=== PATIENT | female | born 1955 | race Caucasian/White ===

== ENCOUNTER → 2020-12-24 | Outpatient (CLI) | payer OTHER ==
[~2020-12-24] MED LIST: ALPRAZOLAM 0.0.25 M1 PO; APAP650 PO; ASA81BEC PO; BIOTIN5000 MCG PO; FISH OIL 1,0001 EAC9 PO; HYDROCHLOROTH12.5 M1 PO; LIPITOR 40 MG T40 M1 PO; LISINOPRIL5 MG PO; LORATIDINE 10 M10 M1 PO; METFORMIN HCL500 M1 PO; METOPROLOL TART25 MG PO; NORFLEX100 MG PO; OMEPRAZOLE40 MG PO; VENTOLIN HFA INH8 GM INH; VITAMIN B-121000 MCG PO; VITAMIN B-6100 MG PO; VITAMIN B122500 MCG PO; VITAMIN D-40010 MCG PO; VITAMIN D325 MC1 PO; VITAMIN E400 UNI6 PO
[2020-12-24 14:07] LABS: URINE BILIRUBIN NEGATIVE (Negative); URINE BLOOD TRACE (Negative); URINE CLARITY CLEAR; URINE COLOR YELLOW; URINE GLUCOSE-RANDOM* NEGATIVE (Negative); URINE KETONES NEGATIVE (Negative); URINE LEUKOCYTES-REFLEX TRACE (Negative); URINE NITRITE-REFLEX NEGATIVE (Negative); URINE PROTEIN (DIPSTICK) NEGATIVE (Negative); URINE SPECIFIC GRAVITY <= 1.005 (1.005-1.035); URINE UROBILINOGEN 0.2 E.U./dl (0.2-1.0)
[2020-12-24 14:10] LABS: HEMATOCRIT 36.2 % (37.0-47.0); HEMOGLOBIN 12.2 gm/dL (12.0-15.0); MCH 32.8 pg (26.0-34.0); MCHC 33.6 g/dL (28.0-37.0); MCV 97.5 fL (80.0-100.0); RBC 3.71 mil/uL (4.20-5.00); RDW 13.5 % (10.5-14.5); WBC 5.6 thou/uL (4.0-11.0)
[2020-12-24 14:19] LABS: CALCIUM 8.3 mg/dL (8.5-10.1); CREATININE 0.8 mg/dL (0.6-1.0); POTASSIUM 3.9 mmol/L (3.5-5.1)
[2020-12-24 14:21] LABS: INR 0.97; PROTIME 10.6 Seconds (10.5-12.1)
[2020-12-25 00:06] LABS: GLYCOHEMOGLOBIN (HGB A1C) 6.7 % (4.8-5.6)
--- NOTE | 2020-12-25 07:18 | EKG ---
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 ANG : 1955 Requested By: Veto Aceves Order Number: [id number] : Álvaro Mccabe Measurements Intervals [place] Rate: 67 P: 47 VA: 125 QRS: 30 QRSD: 91 T: -27 QT: 386 QTc: 408 Interpretive Statements Sinus rhythm Abnormal R-wave progression, early transition Borderline repolarization abnormality No previous ECG available for comparison Electronically Signed On 12-25-2020 7:18:29 CDT by Álvaro Mccabe [email or web address] <ELECTRONICALLY SIGNED> By: Álvaro Mccabe MD, [facility] 12/25/20 0718 1405 1405 Álvaro Mccabe MD, FACC /EPI
== END ==
LOC: PAC 12:45
PROVIDERS: ATTEND Orthopaedic Surgery
DX: Z01.812 Encounter for preprocedural laboratory examination (principal); Z01.810 Encounter for preprocedural cardiovascular examination; M17.11 Unilateral primary osteoarthritis, right knee; R94.31 Abnormal electrocardiogram [ECG] [EKG]

== ENCOUNTER 2021-01-07 06:33 | Observation (INO) | payer OTHER ==
[~2021-01-07] VITALS: Ht 152.4 cm; Wt 92.1 kg
--- NOTE | ~2021-01-07 | O ---
[facility] [place] [address] OPERATIVE REPORT Name: NATI LAWSON Room #: 444-P [facility]..#: [id number] Admission: 01/07/21 Attend Phys: Veto Aceves MD Discharge: Date of : 57 Report #: [id number] THIS REPORT FOR: cc: FAM - Family physician unknown FAM - Family physician unknown Veto Aceves MD ~ DOC #: [id number] Veto Aceves MD DATE OF SERVICE: 01/07/2021 PREOPERATIVE DIAGNOSIS: Right knee valgus osteoarthritis. POSTOPERATIVE DIAGNOSIS: Right knee valgus osteoarthritis. PROCEDURE: Right total knee arthroplasty using Navio robotic assistance. SURGEON: Veto Aceves MD. ASSISTANT COUNTY ENGINEER: Trisha Caal PA-C. INDICATION FOR ASSISTANT COUNTY ENGINEER: Throughout the case, extensive retraction, manipulation of the knee was required. This was afforded to me by my medicine assistant. ANESTHESIA: LMA with adductor canal block. IMPLANTS: [employer] size 4 Journey II BCS Oxinium femur, size 2 tibia, size 29 polyethylene and a size 11 constrained polyethylene. TOURNIQUET TIME: 53 minutes. ESTIMATED BLOOD LOSS: 25 mL. COMPLICATIONS: None. SPECIMENS: None. CONDITION UPON LEAVING THE OR: Stable. INDICATIONS FOR PROCEDURE: The patient is a 65-year-old female with right knee valgus osteoarthritis. She had failed conservative measures for this and after discussion with her, she elected for right total knee arthroplasty. DESCRIPTION OF PROCEDURE: Risks, benefits, alternatives, complications were discussed in detail with the patient including but not limited to risk of anesthesia, risk of damage to nerves, arteries, blood vessels, risk for [facility] [address] [place] [address] OPERATIVE REPORT Name: NATI LAWSON Room #: 444-P [facility]..#: [id number] Admission: 01/07/21 Attend Phys: Veto Aceves MD Discharge: Date of : 57 Report #: [id number] infection, bleeding, risk for continued knee pain, need for reoperation. Informed consent was obtained from the patient. Right knee was appropriately marked in the preoperative holding area. IV Ancef was given for preoperative antibiotics. She was brought to the operating room and placed in the supine position on the operating room table. LMA anesthesia was induced without complication. Tourniquet was placed on the right thigh. Right lower extremity was prepped and draped in normal sterile fashion. Timeout was performed properly identifying the patient and procedure as well as the instrumentation and implants. All in the operating room were in agreement. Right lower extremity was exsanguinated, tourniquet was inflated. Tourniquet time was 53 minutes. Standard midline approach to the knee was made with 10 blade through the skin. Dissection was taken down sharply to fascia. Deep flaps were developed medially and laterally. Fresh 10 blade was used to make a medial parapatellar arthrotomy and the knee was inspected. There was severe lateral compartment osteoarthritis with moderate medial and patellofemoral compartment osteoarthritis. ACL and PCL were removed sharply. Reference pins were placed in the femur and the tibia. The knee was then digitally mapped using the [employer] robotic system. Intraoperative plan was made and we sized the size 4 femur, size 2 tibia and a 10 spacer after acceptance of the intraoperative plan. The distal femoral cut was made with Navio bur. Distal femoral cutting block was pinned in place using Navio for placement and chamfer cuts were made. Attention was turned to the tibia. Remainder of the menisci removed with Bovie cautery. Tibial resection guide was pinned in place using Navio for placement and tibial resection was made. Flexion and extension gaps were checked and found to have good balance laterally in flexion and extension. She was somewhat lax medially and this was not surprising given her underlying valgus deformity, it was felt we could make up for this with a constrained implant. Tibia was sized, found to be a size 2. Size 2 tibial trial was placed, pinned and punched. Size 4 femoral trial was placed, box cut was made. This was then trialed with a size 10 and then a size 11 polyethylene. Size 11 demonstrated 1-2 mm of laxity laterally throughout range of motion 3-4 mm medially. It is felt again we can make up for this with a constrained implant. A 9 mm of bone was resected from the posterior surface of the patella and a size 29 patellar trial button was placed. Knee was taken through range of motion, found to be stable, found to have good patellar tracking. Trial components were removed. Bone ends thoroughly irrigated with normal saline. A final size 2, tibia size 4 Journey II BCS Oxinium femur and a size 29 patella were cemented in place using standard cementation techniques. While the cement cured, a periarticular injection consisting of morphine, ropivacaine, epinephrine, Toradol was placed around the knee joint capsule. After the cement cured, tourniquet was deflated. Hemostasis was obtained with Bovie cautery. Final size 11 constrained polyethylene was placed. A gram of vancomycin was placed deep in the joint. Fascia was closed with 0 Vicryl. Skin was closed with 2-0 Vicryl, skin staple and a TISHA dressing was applied. The patient tolerated this procedure well and went to recovery room under care of anesthesia postoperatively. [address] [address] OPERATIVE REPORT Name: NATI LAWSON Room #: 444-P [facility] M.R.#: [id number] Admission: 01/07/21 Attend Phys: Veto Aceves MD Discharge: Date of : 57 Report #: [id number] Veto Aceves MD SMA/KDA By: 1102 1141 Veto Aceves MD /nt
[2021-01-07 07:36] LABS: CALCIUM 8.9 mg/dL (8.5-10.1); CREATININE 0.9 mg/dL (0.6-1.0); POTASSIUM 3.5 mmol/L (3.5-5.1)
[2021-01-07 08:56] VITALS: BP 135/89
[2021-01-07 11:35] VITALS: BP 130/73
[2021-01-07 14:17] VITALS: BP 135/89
[2021-01-07 15:52] VITALS: BP 125/62
[2021-01-07 20:58] VITALS: BP 119/58
[2021-01-08 07:49] VITALS: BP 105/48
[2021-01-08 09:45] VITALS: BP 120/52
== END 2021-01-08 14:30 | disposition home or self-care (01) ==
LOC: OR → TBA 06:33 → OR 09:14 → 4S 11:06 → OR 12:46 → 4S 19:10
PROVIDERS: ADMIT Orthopaedic Surgery; ATTEND Orthopaedic Surgery
DX: M17.11 Unilateral primary osteoarthritis, right knee (principal)
CPT/HCPCS: 50010; 50101; 50415; 50954; 51130; 51225; 51320; 51412; 53000; 53078; 56527; 56528; 57095; 57103; 57110; 57127; 57180; 58239; 62110; 62900; 70005

== ENCOUNTER → 2021-01-15 | Outpatient (CLI) | payer OTHER | LOC: ULTRA 12:39 | PROVIDERS: ATTEND Orthopaedic Surgery | DX: M79.661 Pain in right lower leg (principal) ==